=== PATIENT | male | born 1935 | race Two or more races ===

== ENCOUNTER 2017-11-10 11:19 | Emergency (ER) | END 2017-11-10 12:30 | disposition home or self-care (01) ==

== ENCOUNTER 2018-01-07 09:18 | Emergency (ER) | END 2018-01-07 13:45 | disposition home or self-care (01) ==

== ENCOUNTER 2019-03-26 08:46 | Emergency (ER) | payer MEDICARE, OTHER ==
[~2019-03-26] VITALS: Ht 162.6 cm; Wt 89.0 kg
[~2019-03-26 08:46] MED LIST: ALLO100T PO; BACTDS PO; COLC0.6T6 PO; MELO7.5T38 PO; TRAM50TA PO
[2019-03-26 08:51] VITALS: Ht 162.6 cm; Wt 89.0 kg
[2019-03-26] MEDS ORDERED: SOD CHLORIDE 0.9% IV SCH (10:30)
[2019-03-26] MEDS ORDERED: GENTAMICIN IV SCH (10:30)
[2019-03-26] MEDS ORDERED: LEVOFLOXACIN 750MG/D5W (PMX) 150 ML IVPB ONE (10:30)
[2019-03-26] MEDS ORDERED: CIPR500T4 PO ×2 (10:39→10:53)
[2019-03-26 10:57] VITALS: BP 146/67; PULSE 72; RESP 20
--- NOTE | 2019-03-26 10:57 | ERD ---
ER Documentation Chief Complaint Chief Complaint ap x 2 days HPI 83-year-old male presents to the emergency department with his family for evaluation of a right sided flank pain. Patient was in his usual state of health which is to say that he has a distant history of a kidney cancer that was partially removed. He is also status post appendectomy. He states over the last 2 days he had a nonspecific right-sided lower abdominal pain. He reports no fevers chills, nausea or vomiting, diarrhea. He reports no hematuria or dysuria. Pain is constant and nonradiating and non-provoked. ROS All systems reviewed and are negative except as per history of present illness. Medications Home Meds Active Scripts Ciprofloxacin Hcl* (Ciprofloxacin Hcl*) 500 Mg Tablet, 500 MG PO BID, #14 TAB Prov:PIO QUIROZ 03/26/19 Ciprofloxacin Hcl* (Ciprofloxacin Hcl*) 500 Mg Tablet, 500 MG PO BID for 7 Days, TAB Prov:PIO QUIROZ 03/26/19 Meloxicam* (Meloxicam*) 7.5 Mg Tablet, 7.5 MG PO DAILY, #30 TAB Prov:PAULINA OWUSU PA-C 01/07/18 Tramadol Hcl* (Ultram*) 50 Mg Tablet, 50 MG PO Q6H PRN for PAIN, #20 TAB Prov:IMELDA DOYLE MD 11/10/17 Allopurinol* (Allopurinol*) 100 Mg Tablet, 100 MG PO DAILY, #30 TAB Prov:IMELDA DOYLE MD 11/10/17 Colchicine* (Colcrys*) 0.6 Mg Tablet, 0.6 MG PO BID for 3 Days, TAB Prov:IMELDA DOYLE MD 11/10/17 Sulfamethoxazole-Trimethoprim* (Bactrim* DS) 800-160 Mg Tab, 1 TAB PO DAILY for 10 Days, TAB Prov:PATTI PAVON MD 02/11/16 Allergies Allergies: Coded Allergies: Penicillins (Verified Allergy, Unknown, rash, 02/10/16) PMhx/Soc History of Surgery: Yes (Prostate,kidney removed 2yrs ago, hernia repair x2) Anesthesia Reaction: No Hx Neurological Disorder: No Hx Respiratory Disorders: No Hx Cardiac Disorders: Yes (HTN) Hx Psychiatric Problems: No Hx Miscellaneous Medical Probl: Yes (DM) Hx Alcohol Use: Yes (occasional) Hx Substance Use: No Hx Tobacco Use: No Smoking Status: Never smoker Physical Exam Vitals Vital Signs Date Temp Pulse Resp B/P (MAP) Pulse Ox O2 O2 Flow FiO2 Time Delivery Rate 03/26/19 98.1 69 18 142/90 99 08:51 (107) Physical Exam GENERAL: The patient is well developed and appropriate for usual state of health in no apparent distress HEENT: Pupils equal, round, and reactive to light. EOMI. There is no scleral icterus. NECK: C-spine is soft and supple, there is no meningismus. There is no cervical lymphadenopathy. LUNGS: Clear to auscultation bilaterally. There are no rales, wheezes or rhonchi. HEART: Regular rate and rhythm, no murmurs, clicks, rubs or gallops. ABDOMEN: Soft, non-tender, non-distended. There are bowel sounds in all four quadrants. No rebound or guarding. No CVA tenderness EXTREMITIES: There is no peripheral cyanosis or edema. No focal swelling or erythema. NEURO: The patient moves all four extremities with 5/5 strength. Cranial nerves II - XII are intact. Normal gait. Alert and oriented SKIN: There is no apparent rash or petechiae. HEME/LYMPHATIC: There is no evidence of excessive bruising or lymphedema. PSYCHIATRIC: The patient does not appear anxious or depressed. Result Diagram: 03/26/19 0909 03/26/19 0909 Results 24 hrs Laboratory Tests Test 03/26/19 09:09 03/26/19 10:20 White Blood Count 10.2 10^3/ul Red Blood Count 4.20 10^6/ul Hemoglobin 12.0 g/dl Hematocrit 35.6 % Mean Corpuscular Volume 84.8 fl Mean Corpuscular Hemoglobin 28.6 pg Mean Corpuscular Hemoglobin Concent 33.7 g/dl Red Cell Distribution Width 14.3 % Platelet Count 260 10^3/UL Mean Platelet Volume 10.6 fl Immature Granulocytes % 0.700 % Neutrophils % 43.3 % Lymphocytes % 26.1 % Monocytes % 7.2 % Eosinophils % 21.8 % Basophils % 0.9 % Nucleated Red Blood Cells % 0.0 /100WBC Immature Granulocytes # 0.070 10^3/ul Neutrophils # 4.4 10^3/ul Lymphocytes # 2.7 10^3/ul Monocytes # 0.7 10^3/ul Eosinophils # 2.2 10^3/ul Basophils # 0.1 10^3/ul Nucleated Red Blood Cells # 0.0 10^3/ul Sodium Level 141 mmol/L Potassium Level 5.3 mmol/L Chloride Level 110 mmol/L Carbon Dioxide Level 21 mmol/L Anion Gap 10 Blood Urea Nitrogen 19 mg/dl Creatinine 1.34 mg/dl Est Glomerular Filtrat Rate mL/min mL/min Glucose Level 111 mg/dl Calcium Level 9.0 mg/dl Total Bilirubin 0.3 mg/dl Direct Bilirubin 0.00 mg/dl Indirect Bilirubin 0.3 mg/dl Aspartate Amino Transf (AST/SGOT) 27 IU/L Alanine Aminotransferase (ALT/SGPT) 28 IU/L Alkaline Phosphatase 76 IU/L Total Protein 7.4 g/dl Albumin 4.1 g/dl Globulin 3.30 g/dl Albumin/Globulin Ratio 1.24 Lipase 339 U/L Urine Color YELLOW Urine Clarity SLIGHTLY CLOUDY Urine pH 5.0 Urine Specific [place] 1.015 Urine Ketones NEGATIVE mg/dL Urine Nitrite NEGATIVE mg/dL Urine Bilirubin NEGATIVE mg/dL Urine Urobilinogen NEGATIVE mg/dL Urine Leukocyte Esterase 2+ Fermin/ul Urine Microscopic RBC 7 /HPF Urine Microscopic WBC 58 /HPF Urine Bacteria FEW /HPF Urine Hemoglobin 2+ mg/dL Urine Glucose NEGATIVE mg/dL Urine Total Protein NEGATIVE mg/dl Current Medications Medications Dose Sig/Tatianna Start Time Status Last (Trade) Ordered Route PRN Stop Time Admin Dose Reason Admin 150 ml @ ONCE ONCE 03/26/19 03/26/19 Levofloxacin/ 100 mls/hr IVPB 10:30 03/26/19 10:31 Dextrose 11:59 Gentamicin 102.75 ml Q8H IV 03/26/19 Sulfate 110 @ 102.75 10:30 mg/ Sodium mls/hr Chloride Procedures/MDM Patient was taken to a room, seen and evaluated. Comfort measures were initiated. Diagnostic tests were ordered and reviewed. 3 LEAD RHYTHM STRIP: Normal sinus rhythm without ectopy RADIOLOGY: Reviewed with the radiologist CONSULTATION: I consulted with Dr. Courtney, our on-call urologist. 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 REEVALUATION: Diagnostic tests were appreciated and discussed in detail with the patient and family. He remained clinically nontoxic MEDICAL DECISION MAKIN-year-old male presents to the emergency department with a right flank pain of uncertain etiology. Given his history of kidney cancer, my main concern was for complications of the cancer or recurrence. Patient's diagnostic testing shows evidence of a fistula, but no evidence of acu te infection, sepsis. Patient will be placed on antibiotics for the obvious high risk of developing infection. After conversations with both the urologist at the hospital as well as the patient and his family, he is comfortable following up with his urologist which seems more appropriate given the continuity of care required for this issue. Patient has no indications clinically of sepsis, dehydration and his pain is well controlled and therefore I am comfortable that he is appropriate for outpatient follow-up. Departure Diagnosis: Primary Impression: Abdominal pain Condition: Stable Patient Instructions: Understanding Urinary Tract Infections (UTIs) Additional Instructions: See your doctor for follow-up as discussed. Take a copy of your test results, if appropriate, to this follow-up visit. See your doctor or return here if your symptoms do not improve as expected. At any time, please return to the emergency department for any change or worsening in her symptoms. PIO QUIROZ Mar 26, 2019 10:57
== END 2019-03-26 11:27 | disposition home or self-care (01) ==
LOC: E/R 08:46
DX: R10.9 Unspecified abdominal pain (principal); I10 Essential (primary) hypertension; E11.9 Type 2 diabetes mellitus without complications; Z85.528 Personal history of other malignant neoplasm of kidney
CPT/HCPCS: 36415; 74176; 80053; 81001; 83690; 85025; 96374; 99285; J1580; J1956